=== PATIENT | female | born 1935 | race Caucasian/White ===

== ENCOUNTER 2016-09-26 11:23 | Day surgery (SDC) | payer OTHER ==
[~2016-09-26] VITALS: Ht 157.5 cm; Wt 64.6 kg
[~2016-09-26 11:23] MED LIST: COUM2TAB PO; LISI-363 PO; LORTA5 PO; METO100T PO; METO50TA PO; TAMO20TA4 PO; Z.0.COMMODE-3:1; Z.0.WALKERFRONT; [UNRECOGNIZED DRUG - CODE] PO
[2016-09-26] MEDS ORDERED: METOPROLOL TARTRATE 25 MG TAB PO PRN (12:15)
[2016-09-26] MEDS ORDERED: NS 1000 ML IV SCH (12:15)
[2016-09-26] MEDS ORDERED: VANCOMYCIN 1000 MG/NS 250 ML IV SCH ×2 (12:15)
[2016-09-26] MEDS ORDERED: INSULIN HUMAN REGULAR 1,000 UNITS/10 ML VIAL SQ PRN (12:15)
[2016-09-26] MEDS ORDERED: CHLORHEXIDINE GLUCONATE 2 % 1 PACK (2 CLOTHS) TOP SCH (12:15)
[2016-09-26] MEDS ORDERED: SODIUM CHLORID 0.9% 500 ML IV SCH (12:15)
[2016-09-26] MEDS ORDERED: POVIDONE IODINE 5% (ANTISEPSIS KIT) 4 APPLICATIONS EACH NARE SCH (12:15)
[2016-09-26] MEDS ORDERED: LACTATED RINGER'S 1000 ML IV SCH (12:15)
[2016-09-26] MEDS ORDERED: Hold AM Insulin & AM Hypoglycemic medications in diabetic patients XX PRN (12:15)
[2016-09-26] MEDS ORDERED: XARE20TA PO (12:27)
[2016-09-26] MEDS ORDERED: METO25TA3 PO (12:27)
[2016-09-26 12:29] VITALS: BP 124/74; PULSE 68; RESP 14; O2SAT 99
[2016-09-26 12:43] LABS: AUTOMATED NEUTROPHIL # 4.9 TH/MM3 (1.8-7.7); BASOPHIL # 0.1 TH/MM3 (0-0.2); BASOPHIL % 0.8 % (0.0-2.0); EOSINOPHIL % 0.3 % (0.0-4.0); HEMATOCRIT 36.5 % (35.0-46.0); HEMO FLAGS DIFF FINAL; LYMPH % 30.6 % (9.0-44.0); LYMPHOCYTE # 2.5 TH/MM3 (1.0-4.8); MEAN CELL VOLUME 91.6 FL (80.0-100.0); MEAN CORPUSCULAR HEMOGLOBIN 30.6 PG (27.0-34.0); MEAN CORPUSCULAR HGB CONC 33.4 % (32.0-36.0); MONO % 8.8 % (0.0-8.0); NEUT % 59.5 % (16.0-70.0); PLATELET COUNT 171 TH/MM3 (150-450); RED BLOOD COUNT 3.99 MIL/MM3 (4.00-5.30); RED CELL DISTRIBUTION WIDTH 14.6 % (11.6-17.2); WHITE BLOOD COUNT 8.2 TH/MM3 (4.0-11.0)
[2016-09-26 12:53] LABS: APTT (PATIENT) 22.8 SEC (24.3-30.1); PROTHROMBIN TIME - PATIENT 11.4 SEC (9.8-11.6)
[2016-09-26 13:08] LABS: BICARBONATE 25.9 MEQ/L (21.0-32.0)
[2016-09-26] MEDS ORDERED: LIDOCAINE HCL 2% 50 ML VIAL ONE (13:32)
[2016-09-26] MEDS ORDERED: DO NOT ADM ANY ANTICOAGULANT DRUGS XX PRN (14:25)
[2016-09-26] MEDS ORDERED: ACETAMINOPHEN 325 MG TAB PO PRN (14:30)
[2016-09-26] MEDS ORDERED: LEVA500T PO (14:59)
--- NOTE | 2016-09-27 09:47 | MP ---
cc: ELLIE PRASAD MD, GLENN H. M.D. DATE OF SURGERY: 09/26/2016 PROCEDURE Pacemaker generator replacement. OPERATIVE NOTES The patient was brought to the operating suite in a fasting state after having signed informed consent. The left upper chest was prepped and draped as per policy and anesthetized with 1% lidocaine. A transverse incision was made over the preexisting generator and using blunt dissection the generator was freed from the subcutaneous pocket. The atrial and ventricular leads were disconnected and then reconnected to the new generator which is a Biotronik Etrinsa device. The atrial and ventricular lead pacing parameters were found to be excellent. The generator and the leads were placed back into the subcutaneous pocket which was closed using 3-0 Vicryl interrupted stitches in 2-3 layers to close the subcutaneous tissue and then 4-0 Monocryl running stitch to close the subcuticular tissue. Overlapping Steri-Strips and a pressure dressing were applied. There were no apparent immediate complications. CONCLUSIONS Successful pacemaker generator replacement using a Biotronik Etrinsa pacemaker generator. MD TAM Chappell/ALICIA /2:20 PM /9:34 AM MTDSara
--- NOTE | 2016-09-27 18:49 | EKG ---
Date Performed: 09/26/2016 Time Performed: 12:50:56 PTAGE: 81 years EKG: Atrial fibrillation Abnormal ECG PREVIOUS TRACING : 07/08/2010 07.58 DOCTOR: José Manuel Peacock Interpretating Date/Time 09/27/2016 18:43:21
== END 2016-09-26 16:40 | disposition home or self-care (01) ==
LOC: HDIC 11:23 → HDOC 11:23
PROVIDERS: ATTEND Internal Medicine Cardiovascular Disease
DX: Z45.010 Encounter for checking and testing of cardiac pacemaker pulse generator [battery] (principal); I49.5 Sick sinus syndrome; I10 Essential (primary) hypertension; I48.91 Unspecified atrial fibrillation; Z79.01 Long term (current) use of anticoagulants
CPT/HCPCS: 00400; 33228; 80048; 85025; 85610; 85730; 93005; C1785; J3010

== ENCOUNTER 2016-12-14 16:31 | Observation (INO) | payer MEDICARE, OTHER ==
[~2016-12-14] VITALS: Ht 157.5 cm; Wt 69.2 kg
[~2016-12-14 16:31] MED LIST changes: -COUM2TAB PO; +LEVA500T PO; -LORTA5 PO; -METO100T PO; +METO25TA3 PO; -METO50TA PO; +XARE20TA PO; -Z.0.COMMODE-3:1; -Z.0.WALKERFRONT
[2016-12-14 16:37] VITALS: BP 116/65; PULSE 114; RESP 20; TEMP 98.4; O2SAT 94
[2016-12-14] MEDS ORDERED: SODIUM CHLOR 0.9% 1000 ML INJ 1,000 ML IV ONE (16:57)
[2016-12-14] MEDS ORDERED: SODIUM CHLORIDE 0.9% FLUSH 10 ML FLUSH IVF PRN (17:00)
--- NOTE | 2016-12-14 17:09 | PD ---
HPI Chief Complaint: Cardiac Complaint Time Seen by Provider: 17:02 Travel History International Travel<30 days: No Contact w/Intl Traveler<30days: No Traveled to known affect area: No History of Present Illness HPI Patient is an 81-year-old female presenting to the emergency department for evaluation of a near syncopal episode. 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 Patient states that she became weak and short of breath. Patient was brought in by EVAC, son is at bedside and states that patient was not feeling well when he picked her up to go to the doctor's appointment. He reports that she developed a cough in the office subsequently causing her to feel short of breath. Patient states that she feels much better now. She denies any chest pain, nausea, vomiting, visual changes, headache. Patient is followed by Dr. Avery and Dr. Vang PCP. Patient has a pacemaker secondary to sick sinus syndrome, her past medical history is also significant for atrial flutter ablation, hypertension, breast cancer, she is currently on Xarelto. PFSH Past Medical History Hx Anticoagulant Therapy: Yes (xarelto) Arthritis: Yes Asthma: No Atrial Fibrillation: Yes Autoimmune Disease: No Blood Disorders: No Anxiety: No Depression: No Heart Rhythm Problems: Yes (sick sinus syndrome) Cancer: Yes (breast) High Cholesterol: No Chemotherapy: No Chest Pain: No Congestive Heart Failure: No COPD: No Cerebrovascular Accident: No Diabetes: No Diminished Hearing: Yes (PT STS SHE IS DIMINISHED BILATERRALLY) Endocrine: No Gastrointestinal Disorders: No GERD: No Glaucoma: No Genitourinary: No Headaches: No Hepatitis: No Hiatal Hernia: No Hypertension: Yes Immune Disorder: No Kidney Stones: No Neurologic: No Psychiatric: No Reproductive: No Respiratory: No Integumentary: No Immunizations Current: No Migraines: No Myocardial Infarction: No Radiation Therapy: No Renal Failure: No Seizures: No Sickle Cell Disease: No Sleep Apnea: No Thyroid Disease: No Ulcer: No ?: Not Menopausal: Yes Tubal Ligation: Yes Past Surgical History Abdominal Surgery: Yes (EXLORATORY FOR BOWEL OBSTRUCTION) AICD: No Appendectomy: Yes Arteriovenous Shunt: No Body Medical Devices: pacemaker Cardiac Surgery: No Cholecystectomy: No Ear Surgery: No Endocrine Surgery: No Eye Surgery: No Genitourinary Surgery: No Hysterectomy: Yes Insulin Pump: No Joint Replacement: Yes Oral Surgery: No Pacemaker: Yes (BIOTRONIK) Thoracic Surgery: No Tonsillectomy: Yes Other Surgery: Yes (total knee replacement) Social History Alcohol Use: No Tobacco Use: No Substance Use: No Allergies-Medications (Allergen,Severity, Reaction): Coded Allergies: Indocin (Verified Allergy, Severe, Rash, 12/03/14) Penicillin (Verified Allergy, Severe, Rash, 12/03/14) Tessalon Perles (Verified Allergy, Severe, Rash, 12/03/14) Reported Meds & Prescriptions Reported Meds & Active Scripts Active Reported Losartan (Losartan Potassium) 50 Mg Tab 50 Mg PO DAILY Cardizem (Diltiazem HCl) 60 Mg Tab 60 Mg PO TID [Tamoxifen] 20 Mg PO DAILY Xarelto (Rivaroxaban) 20 Mg Tab 20 Mg PO HS Metoprolol Tartrate 25 Mg Tab 25 Mg PO BID Review of Systems Except as stated in HPI: all other systems reviewed are Neg HENT: Positive: Lightheadedness Cardiovascular: No: Chest Pain or Discomfort Respiratory: Positive: Cough, Shortness of Breath Gastrointestinal: No: Nausea, Vomiting, Abdominal Pain Genitourinary: No: Dysuria Neurologic: Positive: Dizziness, Syncope (near), No: Focal Abnormalities, Coordination Problem, Change in Mentation, Slurred Speech Physical Exam Narrative GENERAL: Well-developed, well-nourished, alert elderly female. Resting comfortably in no acute distress. SKIN: Focused skin assessment warm/dry. HEAD: Atraumatic. Normocephalic. EYES: Pupils equal and round. No scleral icterus. No injection or drainage. ENT: No nasal bleeding or discharge. Mucous membranes pink and moist. NECK: Trachea midline. No JVD. CARDIOVASCULAR: Tachycardic. No murmur appreciated. RESPIRATORY: No accessory muscle use. Clear to auscultation. Breath sounds equal bilaterally. GASTROINTESTINAL: Abdomen soft, non-tender, nondistended. Hepatic and splenic margins not palpable. MUSCULOSKELETAL: No obvious deformities. No clubbing. No cyanosis. No edema. NEUROLOGICAL: Awake and alert. No obvious cranial nerve deficits. Motor grossly within normal limits. Normal speech. PSYCHIATRIC: Appropriate mood and affect; insight and judgment normal. Data Data Last Documented VS Vital Signs Date Time Temp Pulse Resp B/P Pulse Ox O2 Delivery O2 Flow Rate FiO2 5/25/17 20:20 126 20 129/88 12/14/16 17:30 97 Room Air 12/14/16 16:37 98.4 Orders Electrocardiogram (12/14/16 16:57) Complete Blood Count With Diff (12/14/16 16:57) Comprehensive Metabolic Panel (12/14/16 16:57) Magnesium (Mg) (12/14/16 16:57) Ckmb (Isoenzyme) Profile (12/14/16 16:57) Troponin I (12/14/16 16:57) Act Partial Throm Time (Ptt) (12/14/16 16:57) Prothrombin Time / Inr (Pt) (12/14/16 16:57) Urinalysis - C+S If Indicated (12/14/16 16:57) Chest, Single Ap (12/14/16 16:57) Ct Brain W/O Iv Contrast(Rout) (12/14/16 16:57) Blood Glucose (12/14/16 16:57) Ecg Monitoring (12/14/16 16:57) Iv Access Insert/Monitor (12/14/16 16:57) Oximetry (12/14/16 16:57) Sodium Chloride 0.9% Flush (Ns Flush) (12/14/16 17:00) Sodium Chlor 0.9% 1000 Ml Inj (Ns 1000 M (12/14/16 16:57) Thyroid Stimulating Hormone (12/14/16 16:57) Free Thyroxine (T4) (12/14/16 16:57) Lactic Acid (12/14/16 17:07) Diltiazem Inj (Cardizem Inj) (12/14/16 17:45) Cath For Specimen (12/14/16 18:44) Diltiazem Inj (Cardizem Inj) (12/14/16 20:00) Urine Culture (12/14/16 19:45) Ceftriaxone Inj (Rocephin Inj) (12/14/16 20:45) Admit Order (Ed Use Only) (12/14/16 20:59) Place In Observation (12/14/16 ) Vital Signs (Adult) Q4H (12/14/16 20:59) Activity Oob With Assistance (12/14/16 20:59) Procurement Buyer / Telemetry .CONTINUOUS (12/14/16 20:59) Diet Heart Healthy (12/15/16 Breakfast) Sodium Chloride 0.9% Flush (Ns Flush) (12/14/16 21:00) Sodium Chloride 0.9% Flush (Ns Flush) (12/14/16 21:00) Basic Metabolic Panel (Bmp) (12/15/16 06:00) Complete Blood Count With Diff (12/15/16 06:00) Creatine Kinase (Cpk) (12/14/16 23:00) Creatine Kinase (Cpk) (12/15/16 05:00) Troponin I (12/14/16 23:00) Troponin I (12/15/16 05:00) Electrocardiogram (12/14/16 23:00) Electrocardiogram (12/15/16 05:00) Pt Request For Service (12/14/16 20:59) Case Management Consult (12/14/16 20:59) Naloxone Inj (Narcan Inj) (12/14/16 21:00) ^ Other Nursing Orders (12/14/16 21:01) Labs Laboratory Tests Test 12/14/16 12/14/16 12/14/16 17:00 17:25 19:45 White Blood Count 8.8 TH/MM3 Red Blood Count 4.25 MIL/MM3 Hemoglobin 12.6 GM/DL Hematocrit 37.9 % Mean Corpuscular Volume 89.3 FL Mean Corpuscular Hemoglobin 29.6 PG Mean Corpuscular Hemoglobin 33.2 % Concent Red Cell Distribution Width 13.9 % Platelet Count 213 TH/MM3 Mean Platelet Volume 7.2 FL Neutrophils (%) (Auto) 49.6 % Lymphocytes (%) (Auto) 37.4 % Monocytes (%) (Auto) 11.6 % Eosinophils (%) (Auto) 0.6 % Basophils (%) (Auto) 0.8 % Neutrophils # (Auto) 4.4 TH/MM3 Lymphocytes # (Auto) 3.3 TH/MM3 Monocytes # (Auto) 1.0 TH/MM3 Eosinophils # (Auto) 0.0 TH/MM3 Basophils # (Auto) 0.1 TH/MM3 CBC Comment DIFF FINAL Differential Comment Prothrombin Time 12.6 SEC Prothromb Time International 1.1 RATIO Ratio Activated Partial 28.7 SEC Thromboplast Time Sodium Level 134 MEQ/L Potassium Level 4.3 MEQ/L Chloride Level 99 MEQ/L Carbon Dioxide Level 28.2 MEQ/L Anion Gap 7 MEQ/L Blood Urea Nitrogen 22 MG/DL Creatinine 1.01 MG/DL Estimat Glomerular Filtration 52 ML/MIN Rate Random Glucose 101 MG/DL Calcium Level 9.1 MG/DL Magnesium Level 2.3 MG/DL Total Bilirubin 0.5 MG/DL Aspartate Amino Transf 30 U/L (AST/SGOT) Alanine Aminotransferase 27 U/L (ALT/SGPT) Alkaline Phosphatase 38 U/L Total Creatine Kinase 42 U/L Troponin I LESS THAN 0.02 NG/ML Total Protein 6.9 GM/DL Albumin 3.1 GM/DL Free Thyroxine 1.21 NG/DL Thyroid Stimulating Hormone 1.830 uIU/ML 3rd Gen Lactic Acid Level 1.3 mmol/L Urine Color LIGHT-YELLOW Urine Turbidity CLOUDY Urine pH 7.0 Urine Specific [place] 1.011 Urine Protein 30 mg/dL Urine Glucose (UA) NEG mg/dL Urine Ketones NEG mg/dL Urine Occult Blood MOD Urine Nitrite POS Urine Bilirubin NEG Urine Urobilinogen LESS THAN 2.0 MG/DL Urine Leukocyte Esterase LARGE Urine RBC 23 /hpf Urine WBC /hpf Urine WBC Clumps RARE Urine Squamous Epithelial 4 /hpf Cells Urine Bacteria MANY /hpf Microscopic Urinalysis Comment CULTURE INDICATED MDM Medical Decision Making Medical Screen Exam Complete: Yes Emergency Medical Condition: Yes Interpretation(s) Vital Signs Date Time Temp Pulse Resp B/P Pulse Ox O2 Delivery O2 Flow Rate FiO2 12/14/16 16:37 98.4 114 20 116/65 94 Differential Diagnosis Sepsis versus cardiac arrhythmia versus electrolyte abnormality versus acute coronary syndrome versus other Narrative Course Patient is an 81-year-old female brought in by EMS for evaluation of a near- syncopal episode. On arrival patient reports feeling better however her heart rate is elevated and O2 sat is 94%. Patient has no history of COPD or tobacco use. She is currently on Xarelto and reports compliance. Labs and imaging ordered and pending. Family at bedside. Patient's resting comfortably in no acute distress. Patient placed on telemetry monitoring and continuous pulse oximetry. Initial EKG shows atrial for relation with rapid ventricular response with a rate of 122. Chest x-ray shows no acute disease CBC is unremarkable Chemistry BUN and creatinine of 22/1.01 Troponin is less than 0.02 Thyroid function is normal Coags are unremarkable Care of patient transferred to my attending physician who will determine patient 's disposition. Lidia Kay December 14, 2016 17:09
[2016-12-14 17:15] LABS: AUTOMATED NEUTROPHIL # 4.4 TH/MM3 (1.8-7.7); BASOPHIL # 0.1 TH/MM3 (0-0.2); BASOPHIL % 0.8 % (0.0-2.0); EOSINOPHIL % 0.6 % (0.0-4.0); HEMATOCRIT 37.9 % (35.0-46.0); HEMO FLAGS DIFF FINAL; LYMPH % 37.4 % (9.0-44.0); LYMPHOCYTE # 3.3 TH/MM3 (1.0-4.8); MEAN CELL VOLUME 89.3 FL (80.0-100.0); MEAN CORPUSCULAR HEMOGLOBIN 29.6 PG (27.0-34.0); MEAN CORPUSCULAR HGB CONC 33.2 % (32.0-36.0); MONO % 11.6 % (0.0-8.0); NEUT % 49.6 % (16.0-70.0); PLATELET COUNT 213 TH/MM3 (150-450); RED BLOOD COUNT 4.25 MIL/MM3 (4.00-5.30); RED CELL DISTRIBUTION WIDTH 13.9 % (11.6-17.2); WHITE BLOOD COUNT 8.8 TH/MM3 (4.0-11.0)
[2016-12-14 17:26] LABS: APTT (PATIENT) 28.7 SEC (24.3-30.1); INTERNATIONAL NORMALIZED RATIO 1.1 RATIO; PROTHROMBIN TIME - PATIENT 12.6 SEC (9.8-11.6)
[2016-12-14 17:30] VITALS: RESP 20; O2SAT 97
--- NOTE | 2016-12-14 17:37 | RADRPT ---
EXAM DATE/TIME: 12/14/2016 17:28 [facility] COMPARISON: No previous studies available for comparison. INDICATIONS : Dizziness; near syncopal episode. MEDICAL HISTORY : Hypertension. Carcinoma, breast. Afib. SURGICAL HISTORY : Pacemaker. ENCOUNTER: Initial ACUITY: 1 day PAIN SCORE: 0/10 LOCATION: Bilateral chest FINDINGS: Pacemaker device is noted with control pack over the left chest. Lungs are focally clear. No pleural effusion is evident. Cardiac contours are satisfactory. CONCLUSION: No acute disease Abdifatah Mercado MD on December 14, 2016 at 17:35 Board Certified Radiologist. This report was verified electronically.
[2016-12-14 17:45] LABS: ALKALINE PHOSPHATASE 38 U/L (45-117); ALT (GPT) 27 U/L (10-53); ANION GAP 7 MEQ/L (5-15); AST (GOT) 30 U/L (15-37); BICARBONATE 28.2 MEQ/L (21.0-32.0); BLOOD UREA NITROGEN 22 MG/DL (7-18); CHLORIDE 99 MEQ/L (98-107); CREATINE KINASE 42 U/L (26-192); FREE T4 1.21 NG/DL (0.76-1.46); GLOMERULAR FILTRATION RATE 52 ML/MIN (>89); MAGNESIUM 2.3 MG/DL (1.5-2.5); POTASSIUM 4.3 MEQ/L (3.5-5.1); SODIUM (NA) 134 MEQ/L (136-145); TOTAL BILIRUBIN ADULT 0.5 MG/DL (0.2-1.0)
[2016-12-14] MEDS ORDERED: DILTIAZEM HCL 25 MG/5 ML VIAL IV ONE ×2 (17:45→20:00)
[2016-12-14 18:12] VITALS: BP 116/65; PULSE 86; RESP 20
--- NOTE | 2016-12-14 19:22 | RADRPT ---
EXAM DATE/TIME: 12/14/2016 18:56 [facility] COMPARISON: No previous studies available for comparison. INDICATIONS : Syncope,tachcardia. RADIATION DOSE: 56.77 CTDIvol (mGy) MEDICAL HISTORY : Hypertension. SURGICAL HISTORY : Tonsillectomy. Pacemaker.Hysterectomy.Orthopedic surgery ENCOUNTER: Initial ACUITY: 1 day PAIN SCALE: 0/10 LOCATION: cranial TECHNIQUE: Multiple contiguous axial images were obtained of the head. Using automated exposure control and adj ustment of the mA and/or kV according to patient size, radiation dose was kept as low as reasonably a chievable to obtain optimal diagnostic quality images. FINDINGS: CEREBRUM: The ventricles are normal for age. No evidence of midline shift, mass lesion, hemorrhage or acute in farction. No extra-axial fluid collections are seen. POSTERIOR FOSSA: The cerebellum and brainstem are intact. The 4th ventricle is midline. The cerebellopontine angle i s unremarkable. EXTRACRANIAL: The visualized portion of the orbits is intact. SKULL: The calvaria is intact. No evidence of skull fracture. CONCLUSION: Negative noncontrast head CT. Abdifatah Barber MD on December 14, 2016 at 19:20 Board Certified Radiologist. This report was verified electronically.
--- NOTE | 2016-12-14 20:01 | PD ---
Physical Exam Narrative I, Dr. Fisher, have reviewed the advance practice practitioner's documentation and am in agreement, met with the patient face to face, made the diagnosis, and the medical decision making was done by me. *My assessment and Findings: Afib RVR vs. near syncope 81yo F with PMH of afib on xarelto, pacemaker for sick sinus syndrome here with c/o not feeling well this morning. 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 Pt's payable processor is Dr. Avery. Labs reviewed, no leukocytosis. Troponin negative. TSH normal. Lactic acid normal. CXR showed no acute disease. CT brain negative. Pt was found to be in afib RVR and was initially given cardizem 10mg IV. When I went to evaluate pt, she was back in afib RVR with HR fluctuating between 120s to 140s. BP was 129/88. I ordered another 20mg of IV cardizem. Pt's heart rate has been in the 80s since the second dose of cardizem. UA showed positive nitrite, pt given ceftriaxone. I spoke to [employer] who states that they checked her pacemaker today and it was normal. States that test was completed before her symptoms are worst and came to the ED. Discussed with Dr. Kendall and accepted to her service. Data Data Last Documented VS Vital Signs Date Time Temp Pulse Resp B/P Pulse Ox O2 Delivery O2 Flow Rate FiO2 12/14/16 20:20 126 20 129/88 12/14/16 17:30 97 Room Air 12/14/16 16:37 98.4 Orders Electrocardiogram (12/14/16 16:57) Complete Blood Count With Diff (12/14/16 16:57) Comprehensive Metabolic Panel (12/14/16 16:57) Magnesium (Mg) (12/14/16 16:57) Ckmb (Isoenzyme) Profile (12/14/16 16:57) Troponin I (12/14/16 16:57) Act Partial Throm Time (Ptt) (12/14/16 16:57) Prothrombin Time / Inr (Pt) (12/14/16 16:57) Urinalysis - C+S If Indicated (12/14/16 16:57) Chest, Single Ap (12/14/16 16:57) Ct Brain W/O Iv Contrast(Rout) (12/14/16 16:57) Blood Glucose (12/14/16 16:57) Ecg Monitoring (12/14/16 16:57) Iv Access Insert/Monitor (12/14/16 16:57) Oximetry (12/14/16 16:57) Sodium Chloride 0.9% Flush (Ns Flush) (12/14/16 17:00) Sodium Chlor 0.9% 1000 Ml Inj (Ns 1000 M (12/14/16 16:57) Thyroid Stimulating Hormone (12/14/16 16:57) Free Thyroxine (T4) (12/14/16 16:57) Lactic Acid (12/14/16 17:07) Diltiazem Inj (Cardizem Inj) (12/14/16 17:45) Cath For Specimen (12/14/16 18:44) Diltiazem Inj (Cardizem Inj) (12/14/16 20:00) Urine Culture (12/14/16 19:45) Ceftriaxone Inj (Rocephin Inj) (12/14/16 20:45) Admit Order (Ed Use Only) (12/14/16 20:59) Place In Observation (12/14/16 ) Vital Signs (Adult) Q4H (12/14/16 20:59) Activity Oob With Assistance (12/14/16 20:59) Merchandise Flow Manager / Telemetry .CONTINUOUS (12/14/16 20:59) Diet Heart Healthy (12/15/16 Breakfast) Sodium Chloride 0.9% Flush (Ns Flush) (12/14/16 21:00) Sodium Chloride 0.9% Flush (Ns Flush) (12/14/16 21:00) Basic Metabolic Panel (Bmp) (12/15/16 06:00) Complete Blood Count With Diff (12/15/16 06:00) Creatine Kinase (Cpk) (12/14/16 23:00) Creatine Kinase (Cpk) (12/15/16 05:00) Troponin I (12/14/16 23:00) Troponin I (12/15/16 05:00) Electrocardiogram (12/14/16 23:00) Electrocardiogram (12/15/16 05:00) Pt Request For Service (12/14/16 20:59) Case Management Consult (12/14/16 20:59) Naloxone Inj (Narcan Inj) (12/14/16 21:00) ^ Other Nursing Orders (12/14/16 21:01) Labs Laboratory Tests Test 12/14/16 12/14/16 12/14/16 17:00 17:25 19:45 White Blood Count 8.8 TH/MM3 Red Blood Count 4.25 MIL/MM3 Hemoglobin 12.6 GM/DL Hematocrit 37.9 % Mean Corpuscular Volume 89.3 FL Mean Corpuscular Hemoglobin 29.6 PG Mean Corpuscular Hemoglobin 33.2 % Concent Red Cell Distribution Width 13.9 % Platelet Count 213 TH/MM3 Mean Platelet Volume 7.2 FL Neutrophils (%) (Auto) 49.6 % Lymphocytes (%) (Auto) 37.4 % Monocytes (%) (Auto) 11.6 % Eosinophils (%) (Auto) 0.6 % Basophils (%) (Auto) 0.8 % Neutrophils # (Auto) 4.4 TH/MM3 Lymphocytes # (Auto) 3.3 TH/MM3 Monocytes # (Auto) 1.0 TH/MM3 Eosinophils # (Auto) 0.0 TH/MM3 Basophils # (Auto) 0.1 TH/MM3 CBC Comment DIFF FINAL Differential Comment Prothrombin Time 12.6 SEC Prothromb Time International 1.1 RATIO Ratio Activated Partial 28.7 SEC Thromboplast Time Sodium Level 134 MEQ/L Potassium Level 4.3 MEQ/L Chloride Level 99 MEQ/L Carbon Dioxide Level 28.2 MEQ/L Anion Gap 7 MEQ/L Blood Urea Nitrogen 22 MG/DL Creatinine 1.01 MG/DL Estimat Glomerular Filtration 52 ML/MIN Rate Random Glucose 101 MG/DL Calcium Level 9.1 MG/DL Magnesium Level 2.3 MG/DL Total Bilirubin 0.5 MG/DL Aspartate Amino Transf 30 U/L (AST/SGOT) Alanine Aminotransferase 27 U/L (ALT/SGPT) Alkaline Phosphatase 38 U/L Total Creatine Kinase 42 U/L Troponin I LESS THAN 0.02 NG/ML Total Protein 6.9 GM/DL Albumin 3.1 GM/DL Free Thyroxine 1.21 NG/DL Thyroid Stimulating Hormone 1.830 uIU/ML 3rd Gen Lactic Acid Level 1.3 mmol/L Urine Color LIGHT-YELLOW Urine Turbidity CLOUDY Urine pH 7.0 Urine Specific [place] 1.011 Urine Protein 30 mg/dL Urine Glucose (UA) NEG mg/dL Urine Ketones NEG mg/dL Urine Occult Blood MOD Urine Nitrite POS Urine Bilirubin NEG Urine Urobilinogen LESS THAN 2.0 MG/DL Urine Leukocyte Esterase LARGE Urine RBC 23 /hpf Urine WBC /hpf Urine WBC Clumps RARE Urine Squamous Epithelial 4 /hpf Cells Urine Bacteria MANY /hpf Microscopic Urinalysis Comment CULTURE INDICATED MDM Supervised Visit with STEPHAN: Yes Critical Care Narrative Aggregate critical care time was 45 minutes. Time to perform other separately billable procedures was not included in the critical care time. My time did not include minutes spent treating any other patients simultaneously or on activities that did not directly contribute to the patient's treatment. The services I provided to this patient were to treat and/or prevent clinically significant deterioration that could result in: cardiovascular collapse or . I provided critical care services requiring my management, as noted below: Chart data review, documentation time, medication orders and management, vital sign assessments/reviewing monitor data, ordering and reviewing lab tests, ordering and interpreting/reviewing x-rays and diagnostic studies, care of the patient and discussion of the patient with the admitting physicians. Diagnosis Primary Impression: Atrial fibrillation with RVR Additional Impressions: Near syncope UTI (urinary tract infection) Qualified Code: N39.0 - Urinary tract infection with hematuria, site unspecified Admitting Information Admitting Physician Requests: it Anamaria Fisher DO December 14, 2016 20:01
[2016-12-14 20:06] LABS: BACTERIA, URINE MANY /hpf; BLOOD, URINE MOD (NEG); COMMENT (UR) CULTURE INDICATED; CULTURE IF INDICATED CULTURE INDICATED; GLUCOSE,URINE NEG (NEG); KETONE, URINE NEG (NEG); SQUAMOUS EPITHELIAL CELL URINE 4 /hpf (0-5); URINE COLOR LIGHT-YELLOW (YELLW/STRAW)
[2016-12-14 20:08] LABS: NITRITE,URINE POS (NEG)
[2016-12-14 20:20] VITALS: BP 129/88; PULSE 126; RESP 20
[2016-12-14] MEDS ORDERED: cefTRIAXone INJ 1,000 MG in SODIUM CHLORIDE 0.9% INJ 100 ML IV ONE (20:45)
[2016-12-14] MEDS ORDERED: TAMOXIFEN PO (20:55)
[2016-12-14] MEDS ORDERED: SODIUM CHLORIDE 0.9% FLUSH 10 ML FLUSH IV FLUSH PRN (21:00)
[2016-12-14] MEDS ORDERED: NALOXONE HCL 0.4 MG/ML AMP IV PRN (21:00)
[2016-12-14] MEDS ORDERED: DILT60TA33 PO (21:03)
[2016-12-14] MEDS ORDERED: LOSA50TA PO (21:03)
--- NOTE | 2016-12-14 22:09 | HHI.HP ---
HPI Service [facility] Jeannette Vang MD Admission Diagnosis Afib RVR, near syncope, UTI Diagnoses: Chief Complaint: Palpitations Travel History International Travel<30 Days: No Contact w/Intl Traveler <30 Da: No Traveled to Known Affected Are: No History of Present Illness Written by Zaynab Soto, acting as scribe for Dr. Kendall on 12/14/16 at 23: 18. This is an 81 year old female patient with a past medical history which includes : breast CA s/p radiation treatment taking tamoxifen, prediabetes, Atrial Fibrillation, sick sinus syndrome S/P PPM, Biotronik. Patient was at her manager intelligence- Dr. Paulson's office for pacemaker check earlier today. Patient reports her heart, "started acting up." Patient reports she felt her heart racing, got weak, shaky, began coughing and became SOB. Denies N/V lightheaded, LOC or syncope. Patient reports her medications have not changed recently. Patient reports she does have these episodes from time to time when, "her heart goes too fast." Patient reports these episodes usually last for a matter of minutes then resolved spontaneously. This time the episode occurred at her [employer] office after pacemaker check and she was instructed to come to the emergency department for further evaluation and treatment. Patient denies black stool, bright red blood per rectum, increase in SOB, chest pain, fevers, chills, N/V, increase urinary frequency or dysuria. Patient also denies recent travel, lower extremity edema or calf pain. EKG on arrival reveal A Fib RVR rate 122 Review of Systems Except as stated in HPI: all other systems reviewed are Neg Past Family Social History Past Medical History breast CA s/p radiation treatment taking tamoxifen, prediabetes, Atrial Fibrillation, sick sinus syndrome S/P PPM, Biotronik Past Surgical History Right hip replacement, right knee replacement, hysterectomy, incisional hernia repair, PPM placement, Reported Medications Losartan (Losartan Potassium) 50 Mg Tab 50 Mg PO DAILY Cardizem (Diltiazem HCl) 60 Mg Tab 60 Mg PO TID [Tamoxifen] 20 Mg PO DAILY Xarelto (Rivaroxaban) 20 Mg Tab 20 Mg PO HS Metoprolol Tartrate 25 Mg Tab 25 Mg PO BID Allergies: Coded Allergies: Indocin (Verified Allergy, Severe, Rash, 12/03/14) Penicillin (Verified Allergy, Severe, Rash, 12/03/14) Tessalon Perles (Verified Allergy, Severe, Rash, 12/03/14) Active Ordered Medications Current Medications Medications (Trade) Dose Ordered Sig/Kush Route Start Time Stop Time Status Last Admin (NS Flush) 2 ml UNSCH PRN IV FLUSH 12/14/16 21:00 (NS Flush) 2 ml BID IV FLUSH 12/14/16 21:00 12/14/16 22:15 (Narcan Inj) 0.4 mg UNSCH PRN IV 12/14/16 21:00 Family History Father secondary to emphysema Social History lives alone denies ETOH use, tobacco use or illicit drug use Physical Exam Vital Signs Vital Signs Date Time Temp Pulse Resp B/P Pulse Ox O2 Delivery O2 Flow Rate FiO2 12/14/16 20:20 126 20 129/88 12/14/16 18:12 86 20 116/65 12/14/16 17:30 20 97 Room Air 12/14/16 16:37 98.4 114 20 116/65 94 Physical Exam GENERAL: This is a well-nourished, well-developed patient, appears fatigued SKIN: No rashes, ecchymoses or lesions. Cool and dry. HEAD: Atraumatic. Normocephalic. No temporal or scalp tenderness. EYES: Extraocular motions intact. No scleral icterus. No injection or drainage. CARDIOVASCULAR: Tachycardic and irregularly irregular without murmurs, gallops, or rubs. RESPIRATORY: Clear to auscultation. Breath sounds equal bilaterally. No wheezes , rales, or rhonchi. GASTROINTESTINAL: Abdomen soft, non-tender, nondistended. No hepato-splenomegaly , or palpable masses. No guarding. MUSCULOSKELETAL: Extremities without clubbing, cyanosis, or edema. No joint tenderness, effusion, or edema noted. No calf tenderness. Negative Homans sign bilaterally. NEUROLOGICAL: Awake and alert. No focal deficits appreciated. Motor and sensory grossly within normal limits. 4-5 out of 5 muscle strength in all muscle groups. Normal speech. Laboratory Laboratory Tests Test 12/14/16 12/14/16 12/14/16 17:00 17:25 19:45 White Blood Count 8.8 Red Blood Count 4.25 Hemoglobin 12.6 Hematocrit 37.9 Mean Corpuscular Volume 89.3 Mean Corpuscular Hemoglobin 29.6 Mean Corpuscular Hemoglobin 33.2 Concent Red Cell Distribution Width 13.9 Platelet Count 213 Mean Platelet Volume 7.2 Neutrophils (%) (Auto) 49.6 Lymphocytes (%) (Auto) 37.4 Monocytes (%) (Auto) 11.6 Eosinophils (%) (Auto) 0.6 Basophils (%) (Auto) 0.8 Neutrophils # (Auto) 4.4 Lymphocytes # (Auto) 3.3 Monocytes # (Auto) 1.0 Eosinophils # (Auto) 0.0 Basophils # (Auto) 0.1 CBC Comment DIFF FINAL Differential Comment Prothrombin Time 12.6 Prothromb Time International 1.1 Ratio Activated Partial 28.7 Thromboplast Time Sodium Level 134 Potassium Level 4.3 Chloride Level 99 Carbon Dioxide Level 28.2 Anion Gap 7 Blood Urea Nitrogen 22 Creatinine 1.01 Estimat Glomerular Filtration 52 Rate Random Glucose 101 Calcium Level 9.1 Magnesium Level 2.3 Total Bilirubin 0.5 Aspartate Amino Transf 30 (AST/SGOT) Alanine Aminotransferase 27 (ALT/SGPT) Alkaline Phosphatase 38 Total Creatine Kinase 42 Troponin I LESS THAN 0.02 Total Protein 6.9 Albumin 3.1 Free Thyroxine 1.21 Thyroid Stimulating Hormone 1.830 3rd Gen Lactic Acid Level 1.3 Urine Color LIGHT-YELLOW Urine Turbidity CLOUDY Urine pH 7.0 Urine Specific [place] 1.011 Urine Protein 30 Urine Glucose (UA) NEG Urine Ketones NEG Urine Occult Blood MOD Urine Nitrite POS Urine Bilirubin NEG Urine Urobilinogen LESS THAN 2.0 Urine Leukocyte Esterase LARGE Urine RBC 23 Urine WBC Urine WBC Clumps RARE Urine Squamous Epithelial 4 Cells Urine Bacteria MANY Microscopic Urinalysis Comment CULTURE INDICATED Date/Time Procedure Status Source Growth 12/14/16 19:45 Urine Culture Received Urine Random Urine Pending Result Diagram: 12/14/16 1700 12/14/16 1700 Imaging Last Impressions Head CT 12/14/16 1657 Signed Impressions: Service Date/Time: November 18:56 - CONCLUSION: Negative noncontrast head CT. Abdifatah Barber MD Chest X-Ray 12/14/16 5594 Signed Impressions: Service Date/Time: November 17:28 - CONCLUSION: No acute disease Abdifatah Mercado MD Assessment and Plan Problem List: (1) Atrial fibrillation with RVR ICD Code: I48.91 Status: Acute (2) UTI (urinary tract infection) ICD Code: N39.0 Status: Acute Assessment and Plan This is an 81 year old female patient with a past medical history which includes : breast CA s/p radiation treatment taking tamoxifen, prediabetes, Atrial Fibrillation, sick sinus syndrome S/P PPM, Biotronik. Patient was at her manager [employer]- Dr. Paulson's office for pacemaker check earlier today. Patient reports her heart, "started acting up." Patient reports she felt her heart racing, got weak, shaky, began coughing and became SOB. Denies N/V lightheaded, LOC or syncope. Patient reports her medications have not changed recently. A fib RVR Pacemaker interrogated in cardiology office today per ER CXR reviewed and reveals: No acute disease given Cardizem IV push x 2 in ER continue to monitor on continuos telemetry Initial EKG reviewed and reveals: Afib with RVR rate 122 bpm Consult cardiology patient known to Dr. Mayer UTI culture pending Rocephin IV await culture results Hx breast CA continue tamoxifen DVT prophylaxsis continue patients home Xarelto Discussed with ER provider, nursing and patient This note was transcribed by [email or web address] [Kindra Soto]. I, Dr. Coretta Kendall personally performed the history, physical exam, and medical decision making; and confirmed the accuracy of the information in the transcribed note. Authenticated by Dr. Coretta Kendall on 12/14/16 at 23:18. Problem Qualifiers (1) UTI (urinary tract infection): Qualified Code: N39.0 - Urinary tract infection with hematuria, site unspecified Zaynab Soto December 14, 2016 22:09 Coretta Kendall MD December 15, 2016 08:12
[2016-12-14] MEDS: SODIUM CHLORIDE 0.9% FLUSH 10 ML FLUSH IV FLUSH SCH (22:15)
[2016-12-14 23:00] VITALS: PULSE 114
[2016-12-14 23:07] VITALS: BP 125/87; PULSE 113; RESP 16; TEMP 97.9; O2SAT 97
[2016-12-15] VITALS (28 sets, daily range): BP systolic 106–129; BP diastolic 71–102; PULSE 73–150; RESP 16–20; TEMP 98–98.3; O2SAT 96–98
[2016-12-15 00:32] LABS: CREATINE KINASE 35 U/L (26-192)
[2016-12-15] MEDS ORDERED: DILTIAZEM HCL 25 MG/5 ML VIAL IV ONE (05:00)
[2016-12-15 06:38] LABS: AUTOMATED NEUTROPHIL # 4.4 TH/MM3 (1.8-7.7); BASOPHIL # 0.1 TH/MM3 (0-0.2); BASOPHIL % 1.1 % (0.0-2.0); EOSINOPHIL # 0.1 TH/MM3 (0-0.4); EOSINOPHIL % 0.8 % (0.0-4.0); HEMATOCRIT 37.4 % (35.0-46.0); LYMPH % 36.6 % (9.0-44.0); LYMPHOCYTE # 3.2 TH/MM3 (1.0-4.8); MEAN CELL VOLUME 89.4 FL (80.0-100.0); MEAN CORPUSCULAR HEMOGLOBIN 30.8 PG (27.0-34.0); MEAN CORPUSCULAR HGB CONC 34.5 % (32.0-36.0); MONO % 11.1 % (0.0-8.0); NEUT % 50.4 % (16.0-70.0); PLATELET COUNT 213 TH/MM3 (150-450); RED BLOOD COUNT 4.18 MIL/MM3 (4.00-5.30); RED CELL DISTRIBUTION WIDTH 13.6 % (11.6-17.2); WHITE BLOOD COUNT 8.7 TH/MM3 (4.0-11.0)
[2016-12-15 06:41] LABS: HEMO FLAGS AUTO DIFF
[2016-12-15 07:16] LABS: BANDS 14 % (0-6); EOSINOPHILS 1 % (0-4); NEUTROPHIL # MANUAL DIFF 3.7 TH/MM3 (1.8-7.7); POLYS (SEG NEUTROPHILS) 29 % (16-70); SCAN/DIFF FINAL DIFF MANUAL; WBC DIFF SAMPLE 100
[2016-12-15 07:26] LABS: BICARBONATE 24.1 MEQ/L (21.0-32.0)
[2016-12-15 07:36] LABS: CREATINE KINASE 47 U/L (26-192)
[2016-12-15] MEDS: METOPROLOL TARTRATE 25 MG TAB PO SCH ×2 (08:12→18:30)
[2016-12-15] MEDS: LOSARTAN 50 MG TAB PO SCH (08:12)
[2016-12-15] MEDS: SODIUM CHLORIDE 0.9% FLUSH 10 ML FLUSH IV FLUSH SCH ×2 (08:13→20:17)
[2016-12-15] MEDS: DILTIAZEM HCL 60 MG TAB PO SCH ×3 (08:13→17:56)
--- NOTE | 2016-12-15 12:11 | HHI.PR ---
Subjective Remarks Follow up Afib with RVR/UTI 12/15/16-patient seen and examined; denies any chest pain or Shortness of breath. Afebrile Objective Vitals Vital Signs Date Time Temp Pulse Resp B/P Pulse Ox O2 Delivery O2 Flow Rate FiO2 12/15/16 10:00 96 12/15/16 09:00 100 12/15/16 08:00 150 12/15/16 07:00 133 12/15/16 07:00 98.0 140 16 120/80 98 12/15/16 06:01 125/81 12/15/16 06:00 126/102 12/15/16 06:00 116 12/15/16 05:45 106/82 12/15/16 05:00 134 12/15/16 04:59 131 12/15/16 04:00 116 12/15/16 04:00 98.1 111 16 120/77 97 12/15/16 03:00 126 12/15/16 02:00 114 12/15/16 01:00 108 12/15/16 00:00 88 12/14/16 23:07 97.9 113 16 125/87 97 12/14/16 23:00 114 12/14/16 20:20 126 20 129/88 12/14/16 18:12 86 20 116/65 12/14/16 17:30 20 97 Room Air 12/14/16 16:37 98.4 114 20 116/65 94 I/O 12/14/16 12/14/16 12/14/16 12/15/16 12/15/16 12/15/16 07:00 15:00 23:00 07:00 15:00 23:00 Intake Total 240 ml Output Total 550 ml Balance -310 ml Intake Oral 240 ml IV Total 0 ml Output Urine Total 550 ml # Voids 1 # Bowel Movements 0 Result Diagram: 12/15/16 0557 12/15/16 0557 Imaging Last Impressions Head CT 12/14/161656 Signed Impressions: Service Date/Time: November 18:56 - CONCLUSION: Negative noncontrast head CT. Abdifatah Barber MD Chest X-Ray 12/14/161656 Signed Impressions: Service Date/Time: November 17:28 - CONCLUSION: No acute disease Abdifatah Mercado MD Objective Remarks GENERAL: NAD SKIN: Warm and dry. HEAD: Normocephalic. EYES: No scleral icterus. No injection or drainage. NECK: Supple, trachea midline. No JVD or lymphadenopathy. CARDIOVASCULAR: irreg Regular rate and rhythm without murmurs, gallops, or rubs. RESPIRATORY: Breath sounds equal bilaterally. No accessory muscle use. GASTROINTESTINAL: Abdomen soft, non-tender, nondistended. MUSCULOSKELETAL: No cyanosis, or edema. BACK: Nontender without obvious deformity. No CVA tenderness. A/P Problem List: (1) Atrial fibrillation with RVR ICD Code: I48.91 Status: Acute (2) UTI (urinary tract infection) ICD Code: N39.0 Status: Acute Assessment and Plan A fib RVR Pacemaker interrogated in cardiology office today per ER CXR reviewed and reveals: No acute disease s/p Cardizem IV push x 2 in ER Currently on Cardizem 60mg TID, Lopressor and Losartan. Continue with Xarelto Consult cardiology patient known to Dr. Mayer UTI Continue Rocephin IV await culture results Hx breast CA continue tamoxifen DVT prophylaxis continue patients home Xarelto Problem Qualifiers (1) UTI (urinary tract infection): Qualified Code: N39.0 - Urinary tract infection with hematuria, site unspecified Abbe Beckman MD December 15, 2016 12:11
--- NOTE | 2016-12-15 16:25 | EKG ---
Date Performed: 12/14/2016 Time Performed: 17:30:27 PTAGE: 81 years EKG: ATRIAL FIBRILLATION WITH RAPID VENTRICULAR RESPONSE NONSPECIFIC ST & T-WAVE ABNORMALITY Whe n compared to previous tracing, the rate is faster. ABNORMAL RHYTHM ECG PREVIOUS TRACING : 09/26/2016 12.50 DOCTOR: John Mederos Interpretating Date/Time 12/15/2016 16:24:13
[2016-12-15] MEDS ORDERED: RIVAROXABAN 20 MG TAB PO SCH (21:00)
[2016-12-16] VITALS (14 sets, daily range): BP systolic 105–130; BP diastolic 52–79; PULSE 71–125; RESP 18–20; TEMP 97.5–98.4; O2SAT 96–98
[2016-12-16] MEDS: SODIUM CHLORIDE 0.9% FLUSH 10 ML FLUSH IV FLUSH SCH (08:44)
[2016-12-16] MEDS: DILTIAZEM HCL 60 MG TAB PO SCH ×2 (08:44→13:28)
[2016-12-16] MEDS: LOSARTAN 50 MG TAB PO SCH (08:44)
[2016-12-16] MEDS: METOPROLOL TARTRATE 25 MG TAB PO SCH (08:44)
--- NOTE | 2016-12-16 10:50 | HHI.PR ---
Subjective Remarks Follow up Afib with RVR/UTI 12/15/16-patient seen and examined; denies any chest pain or Shortness of breath. Afebrile 12/16/16-patient seen and examined, stable in no acute event overnight. Would like to go home. Objective Vitals Vital Signs Date Time Temp Pulse Resp B/P Pulse Ox O2 Delivery O2 Flow Rate FiO2 12/16/16 10:00 87 12/16/16 09:00 125 12/16/16 08:00 93 12/16/16 07:00 103 12/16/16 07:00 97 Room Air 12/16/16 07:00 97.5 102 18 130/52 97 12/16/16 06:00 100 12/16/16 05:00 98 12/16/16 04:00 94 12/16/16 04:00 Room Air 12/16/16 04:00 98.0 94 20 105/70 96 12/16/16 03:00 98 12/16/16 02:00 106 12/16/16 01:00 100 12/16/16 00:00 Room Air 12/16/16 00:00 98.4 92 20 119/79 96 12/16/16 00:00 92 12/15/16 23:00 89 12/15/16 22:00 77 12/15/16 21:00 81 12/15/16 20:00 98.2 80 20 123/72 97 12/15/16 20:00 Room Air 12/15/16 20:00 80 12/15/16 18:28 120 12/15/16 17:06 110 12/15/16 16:41 100 12/15/16 15:07 98.0 81 18 111/71 98 12/15/16 15:00 90 12/15/16 14:35 74 12/15/16 13:12 104 12/15/16 12:00 92 12/15/16 11:30 98.3 73 19 129/71 96 12/15/16 11:00 74 I/O 12/15/16 12/15/16 12/15/16 12/16/16 12/16/16 12/16/16 07:00 15:00 23:00 07:00 15:00 23:00 Intake Total 240 ml 900 ml 250 ml Output Total 550 ml 700 ml Balance -310 ml 900 ml -450 ml Intake Oral 240 ml 900 ml 240 ml IV Total 0 ml 10 ml Output Urine Total 550 ml 700 ml # Voids 4 # Bowel Movements 0 0 Result Diagram: 12/15/16 0557 12/15/16 0557 Imaging Last Impressions Head CT 12/14/161656 Signed Impressions: Service Date/Time: November 18:56 - CONCLUSION: Negative noncontrast head CT. Abdifatah Barber MD Chest X-Ray 12/14/161656 Signed Impressions: Service Date/Time: November 17:28 - CONCLUSION: No acute disease Abdifatah Mercado MD Objective Remarks GENERAL: NAD SKIN: Warm and dry. HEAD: Normocephalic. EYES: No scleral icterus. No injection or drainage. NECK: Supple, trachea midline. No JVD or lymphadenopathy. CARDIOVASCULAR: irreg Regular rate and rhythm without murmurs, gallops, or rubs. RESPIRATORY: Breath sounds equal bilaterally. No accessory muscle use. GASTROINTESTINAL: Abdomen soft, non-tender, nondistended. MUSCULOSKELETAL: No cyanosis, or edema. BACK: Nontender without obvious deformity. No CVA tenderness. Procedures None A/P Problem List: (1) Atrial fibrillation with RVR ICD Code: I48.91 Status: Acute (2) UTI (urinary tract infection) ICD Code: N39.0 Status: Acute Assessment and Plan A fib RVR Pacemaker interrogated in cardiology office CXR reviewed and reveals: No acute disease s/p Cardizem IV push x 2 in ER Continue Cardizem 60mg TID, Lopressor and Losartan. Continue with Xarelto UTI Continue Rocephin IV await culture results Hx breast CA continue tamoxifen DVT prophylaxis continue patients home Xarelto Problem Qualifiers (1) UTI (urinary tract infection): Qualified Code: N39.0 - Urinary tract infection with hematuria, site unspecified Abbe Beckman MD December 16, 2016 10:50
--- NOTE | 2016-12-16 13:11 | HHI.DS ---
Discharge Summary Admission Date December 14, 2016 at 21:03 Discharge Date: December 16, 2016 Admitting Diagnosis Afib RVR, near syncope, UTI (1) Atrial fibrillation with RVR ICD Code: I48.91 (2) UTI (urinary tract infection) ICD Code: N39.0 Procedures None Brief History - From Admission Written by Zaynab Soto, acting as scribe for Dr. Kendall on 12/14/16 at 23: 18. This is an 81 year old female patient with a past medical history which includes : breast CA s/p radiation treatment taking tamoxifen, prediabetes, Atrial Fibrillation, sick sinus syndrome S/P PPM, Biotronik. Patient was at her slip filler- Dr. Paulson's office for pacemaker check earlier today. Patient reports her heart, "started acting up." Patient reports she felt her heart racing, got weak, shaky, began coughing and became SOB. Denies N/V lightheaded, LOC or syncope. Patient reports her medications have not changed recently. Patient reports she does have these episodes from time to time when, "her heart goes too fast." Patient reports these episodes usually last for a matter of minutes then resolved spontaneously. This time the episode occurred at her [employer] office after pacemaker check and she was instructed to come to the emergency department for further evaluation and treatment. Patient denies black stool, bright red blood per rectum, increase in SOB, chest pain, fevers, chills, N/V, increase urinary frequency or dysuria. Patient also denies recent travel, lower extremity edema or calf pain. EKG on arrival reveal A Fib RVR rate 122 CBC/BMP: 12/15/16 0557 12/15/16 0557 Significant Findings Laboratory Tests Test 12/14/16 12/14/16 12/14/16 12/15/16 17:00 19:45 23:37 05:57 Monocytes (%) (Auto) 11.6 % 11.1 % (0.0-8.0) (0.0-8.0) Monocytes # (Auto) 1.0 TH/MM3 1.0 TH/MM3 (0-0.9) (0-0.9) Prothrombin Time 12.6 SEC (9.8-11.6) Sodium Level 134 MEQ/L (136-145) Blood Urea Nitrogen 22 MG/DL (7-18) 20 MG/DL (7-18) Creatinine 1.01 MG/DL (0.50-1.00) Estimat Glomerular Filtration 52 ML/MIN (>89) 58 ML/MIN (>89) Rate Alkaline Phosphatase 38 U/L (45-117) Troponin I LESS THAN 0.02 LESS THAN 0.02 LESS THAN 0.02 NG/ML NG/ML NG/ML (0.02-0.05) (0.02-0.05) (0.02-0.05) Albumin 3.1 GM/DL (3.4-5.0) Urine Turbidity CLOUDY (CLEAR) Urine Protein 30 mg/dL (NEG-TRACE) Urine Occult Blood MOD (NEG) Urine Nitrite POS (NEG) Urine Leukocyte Esterase LARGE (NEG) Urine RBC 23 /hpf (0-3) Urine WBC Clumps RARE (NONE) Urine Bacteria MANY /hpf (NONE) Band Neutrophils % 14 % (0-6) Lymphocytes % 48 % (9-44) Calcium Level 8.3 MG/DL (8.5-10.1) PE at Discharge GENERAL: NAD SKIN: Warm and dry. HEAD: Normocephalic. EYES: No scleral icterus. No injection or drainage. NECK: Supple, trachea midline. No JVD or lymphadenopathy. CARDIOVASCULAR: irreg Regular rate and rhythm without murmurs, gallops, or rubs. RESPIRATORY: Breath sounds equal bilaterally. No accessory muscle use. GASTROINTESTINAL: Abdomen soft, non-tender, nondistended. MUSCULOSKELETAL: No cyanosis, or edema. BACK: Nontender without obvious deformity. No CVA tenderness. Hospital Course Patient initially admitted secondary to atrial fibrillation rapid ventricular response for which she was started on Cardizem drip but was subsequently switched to by mouth. Her rates remained control. She was initially treated for UTI with IV Rocephin however as urine culture were negative all antibiotics were discontinued. She was continued on Xarelto. Prior to discharge, patient' s condition improved and her vitals remained stable. Pt Condition on Discharge: Stable Discharge Disposition: Discharge Home Discharge Time: <= 30 minutes Discharge Instructions DIET: Follow Instructions for: Heart Healthy Diet Activities you can perform: Regular-No Restrictions Follow up Referrals: PCP Follow-up - 1 Week Continued Medications: Diltiazem (Cardizem) 60 Mg Tab 60 MG PO TID Angina #120 Ref 0 TAB Losartan (Losartan) 50 Mg Tab 50 MG PO DAILY Blood Pressure Management #30 Ref 0 TAB Metoprolol Tartrate (Metoprolol Tartrate) 25 Mg Tab 25 MG PO BID #60 Ref 0 TAB Rivaroxaban (Xarelto) 20 Mg Tab 20 MG PO HS Blood Clot Prevention Ref 0 TAB ([Tamoxifen]) 20 MG PO DAILY Abbe Beckman MD December 16, 2016 13:11
--- NOTE | 2016-12-16 16:26 | EKG ---
Date Performed: 12/14/2016 Time Performed: 23:55:06 PTAGE: 81 years EKG: Atrial fibrillation with rapid ventricular response Demand pacing Inferior ST-T changes are nonspecific Abnormal ECG No prevous tracing available for comparison PREVIOUS TRACING : 12/14/2016 17.30 DOCTOR: Zachary Lemus Interpretating Date/Time 12/16/2016 16:25:11
== END 2016-12-16 14:08 | disposition home or self-care (01) ==
LOC: NEPE 16:31 → NEDA 21:03 → INTOOBSV 21:03 → HCIS 22:34
PROVIDERS: ADMIT Hospitalist; ATTEND Hospitalist
DX: I48.91 Unspecified atrial fibrillation (principal); N39.0 Urinary tract infection, site not specified; C50.919 Malignant neoplasm of unspecified site of unspecified female breast; I10 Essential (primary) hypertension; M19.90 Unspecified osteoarthritis, unspecified site; H91.93 Unspecified hearing loss, bilateral; Z79.810 Long term (current) use of selective estrogen receptor modulators (SERMs); Z92.3 Personal history of irradiation; Z95.0 Presence of cardiac pacemaker; Z79.01 Long term (current) use of anticoagulants; Z96.641 Presence of right artificial hip joint; Z96.651 Presence of right artificial knee joint; Z88.0 Allergy status to penicillin; Z88.8 Allergy status to other drugs, medicaments and biological substances
CPT/HCPCS: 70450; 71010; 80048; 80053; 81001; 82550; 83605; 83735; 84439; 84443; 84484; 85007; 85025; 85027; 85610; 85730; 87086; 93005; 96361; 96374; 96375; 97162; 99291; G8987; G8988; J0696; J7030; P9612; G0378